=== PATIENT | female | born 1960 | race African-American/Black ===

== ENCOUNTER 2017-10-30 16:58 | Emergency (ER) | payer SELFPAY ==
[2017-10-30] MEDS ORDERED: LIDOCAINE 5% (700 MG) TRANSDERMAL ADH..PATCH TP ONE (18:41)
--- NOTE | 2017-10-30 19:21 | RADIOLOGY REPORT (SQ) ---
EXAM DESCRIPTION: SHOULDER RIGHT 2 OR MORE VIEWS COMPLETED DATE/TIME: 10/30/2017 6:59 pm REASON FOR STUDY: pain COMPARISON: None. NUMBER OF VIEWS: Three views. TECHNIQUE: Internal rotation, external rotation, and Y view images acquired of the right shoulder. LIMITATIONS: None. FINDINGS: MINERALIZATION: Normal. BONES: No acute fracture or dislocation. No worrisome bone lesions. JOINTS: No glenohumeral dislocation. No acromioclavicular joint widening VISUALIZED LUNGS AND RIBS: No pneumothorax. No rib fracture. SOFT TISSUES: No radiopaque foreign body. OTHER: No other significant finding. IMPRESSION: NEGATIVE STUDY OF THE RIGHT SHOULDER. NO RADIOGRAPHIC EVIDENCE OF ACUTE INJURY. TECHNICAL DOCUMENTATION: JOB ID: [id number] [employer]- All Rights Reserved Reading location - IP/workstation name: [email or web address]
--- NOTE | 2017-10-30 19:41 | ER Document Report ---
ED General - General Chief Complaint: Arm Pain Stated Complaint: ARM PAIN Time Seen by Provider: 10/30/17 18:40 TRAVEL OUTSIDE OF THE [place] IN LAST 30 DAYS: No - HPI Patient complains to provider of: Right arm pain Notes: Patient coming in for right arm pain. Patient has pain at the top of the shoulder increased with movement unable to raise the arm above 90. Patient states a normal injury to the right arm ongoing for approximately 3-4 days. Patient denies any history trauma. Resting comfortably upon my evaluation. - Related Data Allergies/Adverse Reactions: No Known Allergies Allergy (Verified 11/27/12 05:09) Past Medical History - Social History Smoking Status: Never Smoker Chew tobacco use (# tins/day): No Frequency of alcohol use: None Drug Abuse: None Family History: CAD - mother, Hypertension - mother Patient has suicidal ideation: No Patient has homicidal ideation: No - Past Medical History Cardiac Medical History: Reports: Hx Hypertension - Patient stopped medications on the advice of her doctor stating she did not Renal/ Medical History: Denies: Hx Peritoneal Dialysis Past Surgical History: Reports: Hx Section - x3, Hx Hysterectomy, Hx Urinary Tract Surgery - Patient suffered a bladder injury during her hysterectomy - Immunizations Hx Diphtheria, Pertussis, Tetanus Vaccination: No Review of Systems - Review of Systems Constitutional: No symptoms reported EENT: No symptoms reported Cardiovascular: No symptoms reported Respiratory: No symptoms reported Gastrointestinal: No symptoms reported Genitourinary: No symptoms reported Female Genitourinary: No symptoms reported Musculoskeletal: Other - Right shoulder pain Skin: No symptoms reported Hematologic/Lymphatic: No symptoms reported Neurological/Psychological: No symptoms reported Physical Exam - Vital signs Vitals: Temp Pulse BP Pulse Ox 98.5 F 58 L 172/94 H 100 10/30/17 18:10 10/30/17 18:10 10/30/17 18:10 10/30/17 18:10 Interpretation: Normal - General General appearance: Appears well, Alert - HEENT Head: Normocephalic, Atraumatic Eyes: Normal Pupils: PERRL - Respiratory Respiratory status: No respiratory distress Chest status: Nontender Breath sounds: Normal Chest palpation: Normal - Cardiovascular Rhythm: Regular Heart sounds: Normal auscultation Murmur: No - Abdominal Inspection: Normal Distension: No distension Bowel sounds: Normal Tenderness: Nontender Organomegaly: No organomegaly - Back Back: Normal, Nontender - Extremities General upper extremity: Normal color, Normal temperature, Other - Decreased range of motion of the right arm due to pain in the right pain is elicited to palpation in the proximal third of the deltoid passive range of motion at 90 is also painful. There is no pain to palpation of the supraspinatus muscle or the coracoid process left arm unaffected General lower extremity: Normal inspection, Nontender, Normal color, Normal ROM , Normal temperature, Normal weight bearing. No: Lindsay's sign - Neurological Neuro grossly intact: Yes Cognition: Normal Orientation: AAOx4 [place] Coma Scale Eye Opening: Spontaneous [place] Coma Scale Verbal: Oriented [place] Coma Scale Motor: Obeys Commands [place] Coma Scale Total: 15 Speech: Normal Motor strength normal: LUE, RUE, LLE, RLE Sensory: Normal - Psychological Associated symptoms: Normal affect, Normal mood - Skin Skin Temperature: Warm Skin Moisture: Dry Skin Color: Normal Course - Re-evaluation Re-evalutation: 10/30/17 20:12 X-ray was performed showing no osseous injury. Will likely patient has a deltoid sprain with patient's physical examination. Will give patient pain control recommend anti-inflammatory medication patient is to follow-up primary care physician - Vital Signs Vital signs: Temp Pulse Resp BP Pulse Ox 98.5 F 76 18 159/74 H 100 10/30/17 19:43 10/30/17 19:43 10/30/17 19:43 10/30/17 19:43 10/30/17 19:43 Discharge - Discharge Clinical Impression: Sprain of ankle, deltoid, right Qualifiers: Encounter type: initial encounter Qualified Code(s): S93.421A - Sprain of deltoid ligament of right ankle, initial encounter Condition: Good Disposition: HOME, SELF-CARE Instructions: Ice Packs ([facility]), Muscle Strain ([facility]), Oral Narcotic Medication ( [facility]), Warm Packs ([facility]) Additional Instructions: X-rays not show any bony abnormality no signs of fracture that would cause her pain. Physical examination is more consistent with a muscle strain specifically the deltoid muscle. Muscle sprains will take approximately 1-2 weeks to heal. Would recommend taking Tylenol Motrin for pain control he may take the Ultram as provided for severe pain. I also recommend ice packs warm packs for pain control to as well follow-up with your primary care physician return to ER symptoms worsen. Prescriptions: Ibuprofen [Motrin 600 mg Tablet] 600 mg PO Q8HP PRN #21 tablet PRN Reason: Tramadol HCl [Ultram 50 mg Tablet] 50 mg PO ASDIR PRN #14 tablet PRN Reason: Forms: Return to Work
[2017-10-30 19:45] VITALS: BP 159/74
--- NOTE | 2017-10-30 21:54 | EKG REPORT ---
SEVERITY:- NORMAL ECG - SINUS RHYTHM : Confirmed by: Manohar Estrada MD 30-Oct-2017 21:53:28
== END 2017-10-30 19:45 | disposition home or self-care (01) ==
LOC: ER 16:58
DX: S93.421A Sprain of deltoid ligament of right ankle, initial encounter (principal); M79.601 Pain in right arm; X58.XXXA Exposure to other specified factors, initial encounter; I10 Essential (primary) hypertension
CPT/HCPCS: 93005; 93010; 99284